=== PATIENT | female | born 1950 | race Two or more races ===

== ENCOUNTER → 2025-02-01 | Outpatient (CLI) | payer OTHER, SELFPAY ==
--- NOTE | 2025-02-01 14:32 | XR_ITS ---
Examination: Lumbar spine, 5 views Technique: Lumbar spine AP, lateral, coned lateral lower lumbar spine, bilateral obliques 5 views Exam date and time: February 01, 2025 1447 hours INDICATIONS: Injury to lower back 2 weeks ago with lower back pain. FINDINGS: Prominent osteopenia. Grade 1 anterolisthesis L4 on L5 Chronic appearing depression superior endplate L1 Advanced degenerative disc disease L4-L5, L5-S1 IMPRESSION: No acute lumbar fracture
--- NOTE | 2025-02-01 14:32 | XR_ITS ---
Examination: Wrist, right 3 views Technique: Wrist AP, oblique, lateral 3 views Date and time of exam: February 01, 2025 1447 hours INDICATIONS: Injury to the wrist 2 weeks ago, wrist pain. FINDINGS: Subtle irregularity distal third of the navicular Severe osteopenia IMPRESSION: Recommend follow-up coned navicular view to exclude occult fracture
--- NOTE | 2025-02-01 14:32 | XR_ITS ---
Examination: Forearm, right, 2 views. Technique: Forearm, AP, lateral 2 views Date and time of exam: February 01, 2025 1447 hours INDICATIONS: Injury to the forearm 2 weeks ago, forearm pain. FINDINGS: Suspicious for fracture radial neck Shaft of the radius and ulna intact IMPRESSION: Recommend elbow films to confirm nondisplaced fracture radial neck
--- NOTE | 2025-02-01 14:32 | XR_ITS ---
EXAMINATION: Cervical spine, 5 views Technique: Cervical spine AP, AP odontoid, lateral, bilateral obliques, 5 views Exam date and time: February 01, 2025 1447 hours INDICATIONS: Patient fell 2 weeks ago with injury to the neck, neck pain FINDINGS: Adequate alignment cervical vertebral bodies. No cervical fracture. Intact odontoid. Advanced degenerative disc disease C4-C5, C5-C6, C6-C7 with moderate bilateral neural foraminal stenosis Heavy soft tissue carotid vascular calcification IMPRESSION: No acute cervical fracture Heavy carotid vascular calcification, consider correlation with carotid Doppler sonography follow-up
--- NOTE | 2025-02-01 14:32 | XR_ITS ---
Examination:Right hip AP, lateral, AP pelvis 3 views Technique: Hip AP lateral, AP pelvis, 3 views Exam date and time:February 01, 2025 1447 hours INDICATIONS: Injury to the hip 2 weeks ago hip pain FINDINGS: No acute right hip fracture or dislocation Suspicious for nondisplaced fracture right inferior pubic ramus IMPRESSION: No acute hip fracture. Recommend CT scan pelvis follow-up to exclude nondisplaced fracture right inferior pubic ramus
--- NOTE | 2025-02-01 14:32 | XR_ITS ---
Examination: Hand, right 3 views Technique: Hand AP, oblique, lateral 3 views Date and time of exam: February 01, 2025 1447 hours INDICATIONS: Patient fell 2 weeks ago with injury to the right hand, right hand pain. FINDINGS: Prominent osteopenia Mild irregularity distal third of the navicular IMPRESSION: Recommend follow-up coned navicular view to exclude occult fracture
--- NOTE | 2025-02-01 14:32 | XR_ITS ---
Examination: Right femur 2 views Technique one AP lateral right femur 2 views Exam date and time: February 01, 2025 1514 hours INDICATIONS: Patient fell 2 weeks ago with injury to the right femur, right femur pain. FINDINGS: No right hip fracture or hip dislocation Shaft of the femur intact IMPRESSION: No acute femur fracture
== END | disposition home or self-care (01) ==
LOC: CDIM 14:23
PROVIDERS: PCP Family Medicine; Referring Provider Nurse Practitioner Family; Visit Provider Nurse Practitioner Family
DX: S69.91XA Unspecified injury of right wrist, hand and finger(s), initial encounter (principal); S59.911A Unspecified injury of right forearm, initial encounter; S79.911A Unspecified injury of right hip, initial encounter; S79.821A Other specified injuries of right thigh, initial encounter; S19.9XXA Unspecified injury of neck, initial encounter; S39.92XA Unspecified injury of lower back, initial encounter; W19.XXXA Unspecified fall, initial encounter; I65.21 Occlusion and stenosis of right carotid artery
CPT/HCPCS: 72050; 72110; 73090; 73110; 73130; 73502; 73552

== ENCOUNTER → 2025-02-02 | Outpatient (CLI) | payer OTHER, SELFPAY ==
--- NOTE | 2025-02-02 15:16 | XR_ITS ---
Examination: Right elbow 3 views Technique: Elbow AP, oblique, lateral 3 views Exam date and time: February 02, 2025 1532 hours INDICATIONS: Patient fell 2 weeks ago with injury to the elbow, elbow pain. FINDINGS: Acute fracture radial head, without significant offset at the fracture site, likely nondisplaced fracture radial neck Humerus ulna intact IMPRESSION: Acute nondisplaced fractures radial head and likely neck.
--- NOTE | 2025-02-02 15:16 | XR_ITS ---
Examination: Wrist, right 3 views Technique: Wrist AP, oblique, lateral 3 views Date and time of exam: February 02, 2025 1532 hours Comparison February 01, 2025 FINDINGS: Coned navicular view does not confirm acute fracture of the navicular Prominent osteopenia No acute fracture depicted IMPRESSION: No acute fracture depicted
== END | disposition home or self-care (01) ==
LOC: CDIM 15:11
PROVIDERS: PCP Nurse Practitioner Family; Referring Provider Nurse Practitioner Family; Visit Provider Nurse Practitioner Family
DX: S52.91XA Unspecified fracture of right forearm, initial encounter for closed fracture (principal); W19.XXXA Unspecified fall, initial encounter; M25.821 Other specified joint disorders, right elbow
CPT/HCPCS: 73080; 73100

== ENCOUNTER 2025-03-03 08:32 | Outpatient (AMB) | payer OTHER, SELFPAY ==
[2025-03-03 08:57] VITALS: BP 134/77; PULSE 82; RESP 18; TEMP 36.3; O2SAT 96; BMI 36.0
--- NOTE | 2025-03-03 08:57 | PD.ORTHCLVIS ---
Vital signs 03/03/25 08:57 Height 1.55 m Height Method Stated Weight 86.438 kg Weight Measurement Method Standing Scale BMI 36.0 BP 134/77 H Blood Pressure Source Automatic Cuff Blood Pressure Location Left Upper Arm Position Sitting Respiration 18 Pulse 82 Pulse Source Monitor Temp 97.4 F Temp Source Temporal Artery Scan Pulse Oximetry (%) 96 Oxygen Delivery Method Room Air Med/Allergies Allergies & Medications Allergies No Known Allergies Allergy (Verified 03/03/25 08:59) Medication Reconciliation aspirin 81 mg tablet,delayed release 81 mg PO QDAY 09/02/23 [History Confirmed 03/03/25] atorvastatin 10 mg tablet 5 mg PO QDAY 09/02/23 [History Confirmed 03/03/25] ferrous sulfate 325 mg (65 mg iron) tablet 325 mg PO QAM 09/02/23 [History Confirmed 03/03/25] glimepiride 2 mg tablet 1 mg PO BID 09/02/23 [History Confirmed 03/03/25] hydrochlorothiazide 25 mg tablet 25 mg PO QDAY 09/02/23 [History Confirmed 03/03/25] lisinopril 20 mg tablet 20 mg PO QDAY 09/02/23 [History Confirmed 03/03/25] omeprazole 40 mg capsule,delayed release 40 mg PO QDAY 09/02/23 [History Confirmed 03/03/25] sitagliptin phos 100 mg-metformin ER 1,000 mg tablet,extend rel 24h mp (Janumet XR) 1 tab PO QAM 09/02/23 [History Confirmed 03/03/25] ascorbic acid (vitamin C) 500 mg capsule,extended release (Vitamin C) 500 mg PO QDAY 09/03/23 [History Confirmed 03/03/25] cholecalciferol (vitamin D3) 25 mcg (1,000 unit) capsule (Vitamin D3) 25 mcg PO QDAY 09/03/23 [History Confirmed 03/03/25] docusate sodium 100 mg capsule (Colace) 100 mg PO QDAY 09/03/23 [History Confirmed 03/03/25] metoclopramide HCl 5 mg tablet (Reglan) 5 mg PO BID #60 tabs 09/03/23 [Rx Confirmed 03/03/25] vitamin B12 500 mcg-folic acid 400 mcg tablet 1 tab PO QDAY 09/03/23 [History Confirmed 03/03/25] Exam Exam Patient is in no acute distress and is cooperative with the examination today. Breathing is nonlabored. In no respiratory distress. Patient has no paraspinal tenderness. Spinal deformity cannot be appreciated. The gait of the patient is nonantalgic Bilateral extremities were evaluated and demonstrates sensation intact to light touch. Palpable pedal pulses are present. No significant edema is present. Bilateral knees were examined and the patient has full strength and range of motion.. The left hip was examined. Patient was able to flex to 90 degrees, adduct to 30 degrees, abduct to 40 degrees, internally rotate to 20 degrees, and externally rotate to 20 degrees. Patient has a negative logroll. Stinchfield is negative. The patient is nontender diffusely to touch. The right hip was examined. Patient was able to flex to 90 degrees, adduct to 30 degrees, abduct to 40 degrees, internally rotate to 20 degrees, and externally rotate to 20 degrees. Patient has a negative logroll. The stinchfield is negative. X-rays from [facility] imaging from 4 weeks ago demonstrates a nondisplaced inferior pubic ramus fracture Assessment and Plan Problem List (1) Inferior pubic ramus fracture: Status: Acute Plan: Patient is a 74-year-old female with a right inferior pubic ramus fracture. She is doing well. We will continue to treat her nonoperatively. I would like to get a new x-ray as she has not had an x-ray since the fall. She is to start physical therapy in a week Advanced Care Planning Discussion Advance care planning discussed with:: patient Office Procedures GNS Level of Care Nursing/Assessment Patient Status: Established Patient Nursing Assessment/Reassesment: Medication Reconciliation, Update PMH in EMR and Vital Signs Coordination of Care: Complex Care and Chronic Disease 1-5, Education Complex Pt/Fam, Consent,records obtained, informed consent, Lab and Imaging orders, Results/Orders obtained and Staff clarify orders Established Patient Charge Established Patient Point Assignment: 110 Established Patient Point Charge: EP Level 3 (80-115) MA Intake Visit Data Collection New Patient or Established: Established Patient (seen at [facility] within 3 years) Reason for Visit:: POSS PUBIS FX Seen by Clinical Staff ONLY (RN/MA): No Verbal consent obtained for Telemed visit?: No Meeting Coordinator Required: No PCP or OBGYN visit in last 3 months: Yes Hx Now: No Do You Feel Safe at Home: Yes Authorities Contacted: N/A Questionairres Past Medical History Past Medical History Have you ever been diagnosed with any of the following: Neurological Problems Seizures: No Cardiology Problems Hypercholesterolemia: Yes Congestive Heart Failure: No Hypertension: Yes Respiratory Problems Chronic Obstructive Pulmonary Disease (COPD): No Stomache/Intestinal Problems Gastroesophageal Reflux Disease: Yes Genital/Urinary Problems Renal Disease: No Reproductive Problems Previous Pregnancies: Yes Musculoskeletal Problems Arthritis: Yes Head,Eye,Nose,Throat Problems Cataracts: Yes Endocrine Problems Diabetes Mellitus Type 1: No Diabetes Mellitus Type 2: Yes Blood Problems Anemia: Yes Psychologic Problems Anxiety: Yes Other Problems Hospitalization: No Blood Transfusions: No Anesthesia Reactions: No Chicken Pox: No Measles: No Mumps: No Cancer: No Subjective Visit Visit for: new patient and hip Immunization / Flu Flu Vaccine in the Last 12 Months: No Flu Vaccine Exclusion Criteria: No Exclusion Criteria History of Present Illness Chief complaint: POSS RIGHT PUBIS FX Date of injury / onset of symptoms: January Patient is a pleasant 74-year-old female with a fall 6 weeks ago. She had some sort of forearm injury which she is seen at the orthopedic surgeon as well as a right inferior pubic ramus fracture. She is able to walk and uses a cane. She reports the pain continues to improve Personal History Occupation: RETIRED Red flag PMH: BMI BMI Counceling provided: Yes Pain Pain level (0-10): 4 Pain duration: COMES AND GOES Pain location: outside (lateral) Pain quality: sharp, dull and aching Pain timing: increases with activity Associated signs & symptoms: stiffness Ambulatory data Ambulatory device: cane Treatments Improvement with previous injections: No Improvement with PT: No Improvement with NSAIDS: yes Review of Systems Review of Systems: All systems negative unless otherwise noted in HPI.
--- NOTE | 2025-03-03 09:01 | XR_ITS ---
Examination:Right hip AP, lateral, AP pelvis 3 views Technique: Hip AP lateral, AP pelvis, 3 views Exam date and time: March 03, 2025, 0930 hours Comparison February 01, 2025. INDICATION: Right hip pain beginning one month ago FINDINGS: No right hip fracture Findings are consistent with partial healing fracture right inferior pubic ramus IMPRESSION: Findings are consistent with healing fracture right inferior pubic ramus, consider CT scan pelvis follow-up to better assess the right superior pubic ramus and right acetabulum as clinically warranted
== END 2025-03-03 09:03 | disposition home or self-care (01) ==
LOC: HODSRG 08:32
PROVIDERS: PCP Nurse Practitioner Family; Referring Provider Nurse Practitioner Family; Supervising Provider Orthopaedic Surgery Adult Reconstructive Orthopaedic Surgery; Visit Provider Orthopaedic Surgery Adult Reconstructive Orthopaedic Surgery
DX: S32.591A Other specified fracture of right pubis, initial encounter for closed fracture (principal); W19.XXXA Unspecified fall, initial encounter; I10 Essential (primary) hypertension; E11.9 Type 2 diabetes mellitus without complications; E78.00 Pure hypercholesterolemia, unspecified
CPT/HCPCS: 73502; 99213; G0463

== ENCOUNTER → 2025-03-18 | Outpatient (CLI) | payer OTHER, SELFPAY ==
--- NOTE | 2025-03-18 10:00 | XR_ITS ---
Examination: Carotid arterial duplex scan, ultrasound. Date and time of exam: March 18, 2025 1020 hours INDICATIONS: Heavy carotid artery calcification on cervical spine films February 01, 2025 Technique: Multiple sonographic images have been obtained of the carotid arteries and vertebral arteries, B-mode/grayscale imaging and Doppler spectral analysis and color flow Peak systolic and diastolic velocities have been recorded. Systolic diastolic ratios have been calculated. Findings: Right peak systolic velocities: Distal internal carotid artery peak systolic velocity is 1.2 M/sec Proximal internal carotid artery peak systolic velocity is 0.6 M/sec Carotid bifurcation peak systolic velocity is 0.8 M/sec External carotid artery peak systolic velocity is 0.7 M/sec Vertebral artery flow is antegrade. Left peak systolic velocities: Distal internal carotid artery peak systolic velocity is 1.0 M/sec Proximal internal carotid artery peak systolic velocity is 0.6 M/sec Carotid bifurcation peak systolic velocity is 0.9 M/sec External carotid artery peak systolic velocity is 0.7 M/sec Vertebral artery flow is antegrade Doppler waveform analysis demonstrates no spectral broadening Impression: Right internal carotid artery demonstrates 0-10% stenosis. Left internal carotid artery demonstrates 0-10% stenosis.
[2025-03-18 11:21] LABS: Glucose Estimated Average 146 mg/dL (80-131); Hemoglobin A1C 6.7 % Hgb (4.8-6.0)
[2025-03-18 11:23] LABS: Anion Gap 7 (7-16); BUN/Creatinine Ratio 20 Ratio (12-20); Blood Urea Nitrogen 20 mg/dL (9-23); Calcium 9.2 mg/dL (8.3-10.6); Carbon Dioxide 32.3 mMol/L (20.0-31.0); Chloride 99 mMol/L (98-107); Glucose 178 mg/dL (74-106); Osmolality,Calculated 282 (275-295); Potassium 4.6 mMol/L (3.4-5.1); Sodium 138 mMol/L (136-145); eGFR 60 See Note
== END | disposition home or self-care (01) ==
LOC: CDIM 09:45
PROVIDERS: PCP Family Medicine; Referring Provider Nurse Practitioner Family; Visit Provider Nurse Practitioner Family
DX: R93.89 Abnormal findings on diagnostic imaging of other specified body structures (principal); E11.9 Type 2 diabetes mellitus without complications; I10 Essential (primary) hypertension
CPT/HCPCS: 36415; 80048; 83036; 93880

== ENCOUNTER 2025-04-14 10:42 | Outpatient (AMB) | payer OTHER, SELFPAY ==
[2025-04-14 10:56] VITALS: BP 129/75; PULSE 97; RESP 18; TEMP 36.6; O2SAT 97; BMI 36.4
--- NOTE | 2025-04-14 10:56 | PD.ORTHCLVIS ---
Vital signs 04/14/25 10:56 Height 1.55 m Height Method Stated Weight 87.628 kg Weight Measurement Method Standing Scale BMI 36.4 BP 129/75 Blood Pressure Source Automatic Cuff Blood Pressure Location Right Upper Arm Position Sitting Respiration 18 Pulse 97 Pulse Source Monitor Temp 98 F Temp Source Temporal Artery Scan Pulse Oximetry (%) 97 Oxygen Delivery Method Room Air Med/Allergies Allergies & Medications Allergies No Known Allergies Allergy (Verified 04/14/25 10:57) Medication Reconciliation aspirin 81 mg tablet,delayed release 81 mg PO QDAY 09/02/23 [History Confirmed 04/14/25] atorvastatin 10 mg tablet 5 mg PO QDAY 09/02/23 [History Confirmed 04/14/25] ferrous sulfate 325 mg (65 mg iron) tablet 325 mg PO QAM 09/02/23 [History Confirmed 04/14/25] glimepiride 2 mg tablet 1 mg PO BID 09/02/23 [History Confirmed 04/14/25] hydrochlorothiazide 25 mg tablet 25 mg PO QDAY 09/02/23 [History Confirmed 04/14/25] lisinopril 20 mg tablet 20 mg PO QDAY 09/02/23 [History Confirmed 04/14/25] omeprazole 40 mg capsule,delayed release 40 mg PO QDAY 09/02/23 [History Confirmed 04/14/25] sitagliptin phos 100 mg-metformin ER 1,000 mg tablet,extend rel 24h mp (Janumet XR) 1 tab PO QAM 09/02/23 [History Confirmed 04/14/25] ascorbic acid (vitamin C) 500 mg capsule,extended release (Vitamin C) 500 mg PO QDAY 09/03/23 [History Confirmed 04/14/25] cholecalciferol (vitamin D3) 25 mcg (1,000 unit) capsule (Vitamin D3) 25 mcg PO QDAY 09/03/23 [History Confirmed 04/14/25] docusate sodium 100 mg capsule (Colace) 100 mg PO QDAY 09/03/23 [History Confirmed 04/14/25] metoclopramide HCl 5 mg tablet (Reglan) 5 mg PO BID #60 tabs 09/03/23 [Rx Confirmed 04/14/25] vitamin B12 500 mcg-folic acid 400 mcg tablet 1 tab PO QDAY 09/03/23 [History Confirmed 04/14/25] Exam Exam Patient is in no acute distress and is cooperative with the examination today. Breathing is nonlabored. In no respiratory distress. Patient has no paraspinal tenderness. Spinal deformity cannot be appreciated. The gait of the patient is nonantalgic Bilateral extremities were evaluated and demonstrates sensation intact to light touch. Palpable pedal pulses are present. No significant edema is present. Bilateral knees were examined and the patient has full strength and range of motion.. The left hip was examined. Patient was able to flex to 90 degrees, adduct to 30 degrees, abduct to 40 degrees, internally rotate to 20 degrees, and externally rotate to 20 degrees. Patient has a negative logroll. Stinchfield is negative. The patient is nontender diffusely to touch. The right hip was examined. Patient was able to flex to 90 degrees, adduct to 30 degrees, abduct to 40 degrees, internally rotate to 20 degrees, and externally rotate to 20 degrees. Patient has a negative logroll. The stinchfield is negative. X-rays from [facility] Demonstrate a healed inferior pubic ramus fracture Assessment and Plan Problem List (1) Inferior pubic ramus fracture: Status: Acute Plan: Patient is a 74-year-old female with a right inferior pubic ramus fracture. She is doing well. We will continue to treat her nonoperatively. Patient is doing well. She should continue physical therapy Advanced Care Planning Discussion Advance care planning discussed with:: patient Office Procedures GNS Level of Care Nursing/Assessment Patient Status: Established Patient Nursing Assessment/Reassesment: Medication Reconciliation, Update PMH in EMR and Vital Signs Coordination of Care: Complex Care and Chronic Disease 1-5, Education Complex Pt/Fam, Consent,records obtained, informed consent, Results/Orders obtained and Staff clarify orders Special Needs: Language special needs Established Patient Charge Established Patient Point Assignment: 95 Established Patient Point Charge: EP Level 3 (80-115) MA Intake Visit Data Collection New Patient or Established: Established Patient (seen at [facility] within 3 years) Reason for Visit:: F/U ON HIP PAIN AND PHYSICAL THERAPY Seen by Clinical Staff ONLY (RN/MA): No Verbal consent obtained for Telemed visit?: No Questionairres Past Medical History Past Medical History Have you ever been diagnosed with any of the following: Neurological Problems Seizures: No Cardiology Problems Hypercholesterolemia: Yes Congestive Heart Failure: No Hypertension: Yes Respiratory Problems Chronic Obstructive Pulmonary Disease (COPD): No Stomache/Intestinal Problems Gastroesophageal Reflux Disease: Yes Genital/Urinary Problems Renal Disease: No Reproductive Problems Previous Pregnancies: Yes Musculoskeletal Problems Arthritis: Yes Head,Eye,Nose,Throat Problems Cataracts: Yes Endocrine Problems Diabetes Mellitus Type 1: No Diabetes Mellitus Type 2: Yes Blood Problems Anemia: Yes Psychologic Problems Anxiety: Yes Other Problems Hospitalization: No Blood Transfusions: No Anesthesia Reactions: No Chicken Pox: No Measles: No Mumps: No Cancer: No Subjective Visit Visit for: new patient, follow up visit and hip Immunization / Flu Flu Vaccine in the Last 12 Months: No Flu Vaccine Exclusion Criteria: No Exclusion Criteria History of Present Illness Chief complaint: POSS RIGHT PUBIS FX Date of injury / onset of symptoms: January Patient is a pleasant 74-year-old female with a fall 6 weeks ago. She had some sort of forearm injury which she is seen at the orthopedic surgeon as well as a right inferior pubic ramus fracture. She is able to walk and uses a cane. She reports the pain continues to improve. She just started therapy and is doing well. Personal History Occupation: RETIRED Red flag PMH: BMI BMI Counceling provided: Yes Pain Pain level (0-10): 4 Pain duration: COMES AND GOES Pain location: outside (lateral), anterior and posterior Pain quality: sharp, dull and aching Pain timing: increases with activity Associated signs & symptoms: stiffness and none Ambulatory data Ambulatory device: cane Treatments Improvement with previous injections: No Improvement with PT: No Improvement with NSAIDS: yes Review of Systems Review of Systems: All systems negative unless otherwise noted in HPI.
== END 2025-04-14 11:19 | disposition home or self-care (01) ==
LOC: HODSRG 10:42
PROVIDERS: PCP Family Medicine; Referring Provider Family Medicine; Supervising Provider Orthopaedic Surgery Adult Reconstructive Orthopaedic Surgery; Visit Provider Orthopaedic Surgery Adult Reconstructive Orthopaedic Surgery
DX: S32.591D Other specified fracture of right pubis, subsequent encounter for fracture with routine healing (principal); W19.XXXD Unspecified fall, subsequent encounter; I10 Essential (primary) hypertension; E78.00 Pure hypercholesterolemia, unspecified; K21.9 Gastro-esophageal reflux disease without esophagitis; E11.9 Type 2 diabetes mellitus without complications
CPT/HCPCS: 99213; G0463

== ENCOUNTER → 2025-06-23 | Outpatient (CLI) | payer OTHER, SELFPAY ==
--- NOTE | 2025-06-23 15:50 | XR_ITS ---
Examination: Ribs, right, unilateral four views with PA chest TECHNIQUE: Upright PA chest, AP, RPO, LPO right RIBS total 4 views Exam date and time: June 23, 2025, 1621 hours INDICATIONS: Patient fell January 2025 with injury of the right chest, persistent right rib pain. Findings: Normal heart size. No pneumothorax. Prominent osteopenia. No acute rib fractures. Impression: No pneumothorax. No acute rib fractures.
--- NOTE | 2025-06-23 15:50 | XR_ITS ---
Examination: Humerus 2 views right Technique: Humerus, AP lateral 2 views Date and time of exam: June 23, 2025, 1621 hours. INDICATIONS: Patient fell January 2025 with injury to the arm, arm pain. FINDINGS: No acute fracture of the humerus No shoulder dislocation IMPRESSION: No acute fracture Prominent calcific tendinitis
--- NOTE | 2025-06-23 15:50 | XR_ITS ---
Examination: Shoulder,right, 3 views Technique: Shoulder AP internal rotation, AP external rotation, Y view shoulder, 3 views Exam date and time :June 23, 2025, 1621 hours INDICATIONS: Right shoulder pain beginning in January 2025. FINDINGS: No shoulder fracture or dislocation. Moderate narrowing, humeral joint. Prominent right shoulder calcific tendinitis. IMPRESSION: Prominent right shoulder calcific tendinitis.
--- NOTE | 2025-06-23 15:50 | XR_ITS ---
Examination: Thoracic spine 3 views TECHNIQUE: AP lateral coned lateral upper dorsal spine 3 views Date and time: June 23, 2025 1624 hours INDICATIONS: Upper back pain after fall in January 2025. FINDINGS: Moderate osteopenia. Adequate alignment thoracic vertebral bodies. Depression of the superior endplate L1 vertebral body. No acute thoracic fracture IMPRESSION: Recommend three-view lumbar spine follow-up to assess acuity of the mild compression fracture L1
== END | disposition home or self-care (01) ==
LOC: CDIM 15:46
PROVIDERS: Referring Provider Nurse Practitioner Family; Visit Provider Nurse Practitioner Family
DX: M75.31 Calcific tendinitis of right shoulder (principal); R07.81 Pleurodynia; T14.8XXA Other injury of unspecified body region, initial encounter; S29.9XXA Unspecified injury of thorax, initial encounter; W19.XXXA Unspecified fall, initial encounter
CPT/HCPCS: 71100; 72072; 73030; 73060

== ENCOUNTER → 2025-09-06 | Outpatient (CLI) | payer OTHER, SELFPAY ==
[2025-09-06 11:42] LABS: Basophils # (Auto) 0.0 Thou/mm3 (0.0-0.2); Basophils % (Auto) 0 % (0-2.5); Eosinophils # (Auto) 0.1 Thou/mm3 (0.0-0.5); Eosinophils % (Auto) 1 % (0-10); Hematocrit 35.5 % (36.0-46.0); Hemoglobin 11.7 g/dL (12.0-16.0); Immature Granulocytes Auto 0.02 Thou/mm3 (0.00-0.00); Lymphocytes # (Auto) 1.8 Thou/mm3 (1.0-4.8); Lymphocytes % (Auto) 25 % (10-50); Mean Corpuscular HGB Conc 33.0 g/dl (31.0-37.0); Mean Corpuscular Hemoglobin 29.8 pg (25.0-35.0); Mean Corpuscular Volume 90 fL (80-100); Monocytes # (Auto) 0.4 Thou/mm3 (0.0-0.8); Monocytes % (Auto) 6 % (0-12); Neutrophils # (Auto) 4.9 Thou/mm3 (1.8-7.7); Neutrophils % (Auto) 67 % (37-80); Nucleated Red Blood Cell # 0.00 Thou/mm3 (0.00-0.00); Nucleated Red Blood Cell % 0 /100 WBC (0); Platelet Count 289 Thou/mm3 (140-440); RDW Standard Deviation 44.4 fL (36.4-46.3); Red Blood Count 3.93 Miln/mm3 (4.00-5.20); White Blood Count 7.3 Thou/mm3 (3.6-11.0)
[2025-09-06 12:02] LABS: Creatinine MALB Rnd Ur 92 mg/dL (30-125); Microalbumin Creat Ratio 16 mg/gCrea (<30); Microalbumin, Random Urine 15 mg/L (0-300)
[2025-09-06 12:34] LABS: Glucose Estimated Average 154 mg/dL (80-131); Hemoglobin A1C 7.0 % Hgb (4.8-6.0)
[2025-09-06 12:36] LABS: Alanine Aminotransferase 9 U/L (10-49); Albumin, Serum 4.4 gm/dL (3.4-4.8); Albumin/Globulin Ratio 1.6 (1.2-2.2); Alkaline Phosphatase 55 U/L (46-116); Anion Gap 8 (7-16); Aspartate Amino Transferase 14 U/L (0-34); BUN/Creatinine Ratio 14 Ratio (12-20); Bilirubin,Total 0.3 mg/dL (0.3-1.2); Blood Urea Nitrogen 14 mg/dL (9-23); Calcium 9.6 mg/dL (8.3-10.6); Calcium (Corrected) 9.6 mg/dL (8.5-10.1); Carbon Dioxide 29.7 mMol/L (20.0-31.0); Chloride 101 mMol/L (98-107); Creatinine (Component) 1.0 mg/dL (0.6-1.3); Free T4 (Free Thyroxine) 1.46 ng/dL (0.89-1.76); Globulin 2.8 gm/dL (2.3-3.5); Glucose 149 mg/dL (74-106); Osmolality,Calculated 281 (275-295); Potassium 3.9 mMol/L (3.4-5.1); Sodium 139 mMol/L (136-145); Thyroid Stimulating Hormone 3.22 uIU/mL (0.55-4.78); Total Protein 7.2 gm/dL (5.7-8.2); eGFR 59 See Note
[2025-09-06 12:41] LABS: Vitamin B12 1670 pg/mL (211-911)
[2025-09-06 12:45] LABS: Iron 57 mcg/dL (50-170); Percent Iron Saturation 21 % (20-55); Total Iron Binding Capacity 262 mcg/dL (250-425); Unsaturated Iron Binding 205 (225-295)
[2025-09-06 12:49] LABS: Cardiac Risk Estimate 2.4 RATIO (3.7-5.6); Cholesterol 167 mg/dL (132-200); HDL Cholesterol 70 mg/dL (40-60); LDL Cholesterol,Calculated 80 mg/dL (0-130); Triglycerides 87 mg/dL (30-150)
== END | disposition home or self-care (01) ==
LOC: COPL 10:40
PROVIDERS: PCP Family Medicine; Referring Provider Nurse Practitioner Family; Visit Provider Nurse Practitioner Family
DX: E11.9 Type 2 diabetes mellitus without complications (principal); E03.9 Hypothyroidism, unspecified; I10 Essential (primary) hypertension; E78.2 Mixed hyperlipidemia; D50.9 Iron deficiency anemia, unspecified
CPT/HCPCS: 36415; 80053; 80061; 82043; 82570; 82607; 83036; 83540; 83550; 84439; 84443; 85025

== ENCOUNTER → 2025-09-07 | Outpatient (CLI) | payer OTHER, SELFPAY ==
--- NOTE | 2025-09-07 11:30 | XR_ITS ---
Examination: Screening digital mammography, bilateral Computer aided detection 3-D breast Tomosynthesis, bilateral Date and time of exam: 09/07/2025, 11:11 a.m. Comparisons: September 2024 Indications: Screening Technique: Nonmagnified MLO, CC views of the breasts to been obtained, reconstructed from 3-D Tomosynthesis images. R2 computer aided detection program utilized for evaluation of suspicious masses and/or abnormal calcifications. 3-D Tomosynthesis images obtained. Technologist: Findings: There are scattered areas of fibroglandular density. No evidence of abnormal masses or suspicious calcifications. Impression: BI-RADS category 1: Negative findings (within normal) Recommend 1 year follow-up mammogram
== END | disposition home or self-care (01) ==
LOC: CDIM 11:02
PROVIDERS: Referring Provider Nurse Practitioner Family; Visit Provider Nurse Practitioner Family
DX: Z12.31 Encounter for screening mammogram for malignant neoplasm of breast (principal); R92.313 Mammographic fatty tissue density, bilateral breasts
CPT/HCPCS: 77063; 77067